=== PATIENT | male | born 1960 | race African-American/Black ===

== ENCOUNTER 2018-07-10 02:24 | Emergency (ER) | payer MEDICAID ==
--- NOTE | 2018-07-10 02:28 | NUR ---
pt called for triage, no answer.
--- NOTE | 2018-07-10 02:33 | NUR ---
2nd call for pt, no answer.
--- NOTE | 2018-07-10 02:41 | NUR ---
3rd call for triage, no answer. LWBT.
== END 2018-07-10 03:10 | disposition left against medical advice (07) ==
LOC: ER 02:29
DX: Z53.21 Procedure and treatment not carried out due to patient leaving prior to being seen by health care provider (principal)